=== PATIENT | female | born 1975 | race Caucasian/White ===

== ENCOUNTER → 2021-12-11 | Outpatient (CLI) | payer OTHER ==
--- NOTE | 2021-12-13 09:14 | MM ---
Reason for exam: screening (asymptomatic). Last mammogram was performed 1 year ago. History: Took hormonal contraceptives for 2 years. Physical Findings: A clinical breast exam by your physician is recommended on an annual basis and results should be correlated with mammographic findings. MG 3D Screening Mammo W/Cad Bilateral CC and MLO view(s) were taken. Prior study comparison: December 08, 2020, bilateral MG 3d screening mammo w/cad. November 06, 2019, bilateral MG 3d screening mammo w/cad. November 03, 2018, bilateral MG 3d screening mammo w/cad. October 31, 2017, bilateral MG screening mammo w CAD. There are scattered fibroglandular densities. No significant changes when compared with prior studies. ASSESSMENT: Benign, BI-RAD 2 RECOMMENDATION: Routine screening mammogram of both breasts in 1 year.
== END | disposition home or self-care (01) ==
LOC: RADMAMWWP 09:01 → MERGE 09:20
PROVIDERS: ATTEND Obstetrics & Gynecology
DX: Z12.31 Encounter for screening mammogram for malignant neoplasm of breast (principal)
CPT/HCPCS: 77063; 77067

== ENCOUNTER → 2023-03-22 | Outpatient (CLI) | payer OTHER ==
--- NOTE | 2023-03-25 09:49 | MM ---
Reason for Exam: Screening (asymptomatic). Last mammogram was performed 1 year(s) and 3 month(s) ago. Patient History: Menarche at age 14. First Full-Term at age 18. Patient used Hormonal Contraceptives for 2 years. Last menstrual period: 03/12/2023 Risk Values: Liz 5 year model risk: 0.6%. Prior Study Comparison: 11/06/2019 Bilateral Screening Mammogram, [facility]. 12/08/2020 Bilateral Screening Mammogram, [facility]. 12/11/2021 Bilateral Screening Mammogram, [facility]. Tissue Density: There are scattered fibroglandular densities. Findings: Analyzed By CAD. There is no suspicious group of microcalcifications or new suspicious mass in either breast. Overall Assessment: Negative, BI-RAD 1 Management: Screening Mammogram of both breasts in 1 year. . Patient should continue monthly self-breast exams. A clinical breast exam by your physician is recommended on an annual basis. This exam should not preclude additional follow-up of suspicious palpable abnormalities. Note on Liz scores and lifetime risk: 1. A Liz score greater than 3% is considered moderate risk. If this is the case, consider specialist referral to assess eligibility for a risk reducing agent. 2. If overall lifetime risk for the development of breast cancer is 20% or higher, the patient may qualify for future screening with alternating mammogram and breast MRI. Electronically signed and approved by: Chuck Millan M.D. Radiologis
== END | disposition home or self-care (01) ==
LOC: RADMAMWWP 10:57
PROVIDERS: ATTEND Obstetrics & Gynecology
DX: Z12.31 Encounter for screening mammogram for malignant neoplasm of breast (principal)
CPT/HCPCS: 77063; 77067

== ENCOUNTER 2023-06-25 05:48 | Day surgery (SDC) | payer OTHER ==
[2023-06-25] MEDS ORDERED: HYDROmorphone 0.5 MG/0.5 ML SYRINGE IVP PRN (05:59)
[2023-06-25] MEDS ORDERED: DEXAMETHASONE SOD PHOSPHATE 4 MG/ML 1 ML VIAL IV ONE (05:59)
[2023-06-25] MEDS ORDERED: ONDANSETRON 4 MG/2 ML VIAL IVP ONE (05:59)
[2023-06-25] MEDS ORDERED: ACETAMINOPHEN IV (For NPO) 1,000 MG in EMPTY BAG 1 BAG IVPB PRN (06:00)
[2023-06-25] MEDS: LACTATED RINGERS 1,000 ML IV SCH (06:44)
[2023-06-25] MEDS ORDERED: MIDAZOLAM 2 MG/2 ML VIAL IVP ONE (07:02)
[2023-06-25] MEDS ORDERED: GLYCOPYRROLATE 0.2 MG/ML 2 ML VIAL ONE (07:33)
[2023-06-25] MEDS ORDERED: PROPOFOL 10 MG/ML 20 ML VIAL IV ONE (07:33)
[2023-06-25] MEDS ORDERED: PHENYLEPHRINE-0.9% NACL SYG 1,000 MCG/10 ML SYRINGE ONE (07:33)
[2023-06-25] MEDS ORDERED: MIDAZOLAM 2 MG/2 ML VIAL ONE (07:33)
[2023-06-25] MEDS ORDERED: NEOSTIGMINE 1 MG/ML 10 ML VIAL ONE (07:33)
[2023-06-25] MEDS ORDERED: SUCCINYLCHOLINE CHLORIDE 200 MG/10 ML VIAL IV ONE (07:33)
[2023-06-25] MEDS ORDERED: ROCURONIUM 10 MG/ML (5 ML VIAL) IV ONE (07:33)
[2023-06-25] MEDS ORDERED: LIDOCAINE 2% INJ 20 MG/ML (2 ML VIAL) ONE (07:33)
[2023-06-25] MEDS ORDERED: HYDROmorphone (PF) 1 MG/ML ONE (07:33)
[2023-06-25] MEDS ORDERED: fentaNYL (PF) 50 MCG/ML 2 ML AMP ONE (07:33)
[2023-06-25] MEDS ORDERED: MORPHINE SULFATE (PF) 0.3 MG/0.3 ML SYR ONE (07:33)
[2023-06-25] MEDS ORDERED: BUPIVACAINE (PF) 0.25% 30 ML VIAL SQ ONE ×2 (08:15→10:12)
[2023-06-25] MEDS ORDERED: LACTATED RINGERS 1,000 ML IV ONE (09:32)
[2023-06-25] MEDS ORDERED: SIMETHICONE 80 MG CHEWABLE PO PRN (10:10)
[2023-06-25] MEDS ORDERED: Acetaminophen-Codeine 300-30mg TAB PO PRN ×2 (10:10)
[2023-06-25] MEDS ORDERED: IBUPROFEN 600 MG TAB PO PRN (10:10)
--- NOTE | 2023-06-25 12:47 | P.ANPRN ---
Procedure Note - Anesthesia - Epidural/Spinal Spinal Time Out Performed: Yes Date of Procedure: 06/25/23 Procedure Start Time: 07:01 Procedure Stop Time: 07:05 Location of Patient: PreOp Indication: Acute Post-Operative Pain, Requested by Surgeon Sedation Type: Sedate with meaningful contact maintained Preparation: Sterile Prep Position: Sitting Needle Guage: 25 Blood Aspirated: No Pain Paresthesia on Injection Noted: No Events: Uneventful and Well Tolerated (duramorph 300 mics plus fentanyl 25mics)
[2023-06-25] MEDS: ONDANSETRON 4 MG/2 ML VIAL IVP PRN ×2 (13:09→20:10)
[2023-06-25] MEDS: IBUPROFEN IV 800 MG in SODIUM CHLORIDE 0.9% 250 ML IV ONE (13:30)
[2023-06-25] MEDS: VENLAFAXINE HCL 37.5 MG TAB PO SCH (17:23)
[2023-06-25] MEDS: SENNOSIDES-DOCUSATE SODIUM 1 EACH TAB PO SCH (20:21)
[2023-06-26] MEDS: IBUPROFEN IV 800 MG in SODIUM CHLORIDE 0.9% 250 ML IV ONE (00:23)
--- NOTE | 2023-06-26 06:24 | P.PN ---
Progress Note - Text Progress Note Date: 06/26/23 is a 47-year-old female had a history of robotic-assisted vaginal h ysterectomy postoperative day 1 , for postop pain control spinal analgesia with Astramorph 300 g for postop pain. Today patient is comfortable sitting in her bed. Today patient rated her pain level 3 out of 10 in severity. Denied any fever, drowsiness, confusion. Denied any weakness, tingling sensation in her lower extremities. Denied any bowel or bladder problems. Moving all extremities without any difficulty. Able to walk without any difficulties. Vitals: Hemodynamically stable Continue oral pain medication as per primary team.
[2023-06-26 06:27] LABS: Basophils % (A) 0 %; Eosinophils # (A) 0.1 k/uL (0-0.7); Eosinophils % (A) 1 %; HCT 36.3 % (34.0-46.0); HGB 12.3 gm/dL (11.4-16.0); Lymphocytes # (A) 1.4 k/uL (1.0-4.8); Lymphocytes % (A) 13 %; MCH 32.2 pg (25.0-35.0); MCHC 33.8 g/dL (31.0-37.0); Mean Platelet Volume 8.1; Monocytes # (A) 0.6 k/uL (0-1.0); Monocytes % (A) 5 %; Neutrophils # (A) 8.7 k/uL (1.3-7.7); Neutrophils % (A) 80 %; Platelet Count 303 k/uL (150-450); RBC 3.82 m/uL (3.80-5.40); RDW 13.5 % (11.5-15.5)
[2023-06-26] MEDS: LACTATED RINGERS 1,000 ML IV SCH (06:35)
[2023-06-26] MEDS: SENNOSIDES-DOCUSATE SODIUM 1 EACH TAB PO SCH (08:53)
[2023-06-26] MEDS: VENLAFAXINE HCL 37.5 MG TAB PO SCH (08:53)
[2023-06-26 09:10] VITALS: BP 103/65; PULSE 80; RESP 16; TEMP 98.4
[2023-06-26] MEDS ORDERED: ACETAMINOPHEN TAB 325 MG TAB PO PRN (10:11)
--- NOTE | 2023-06-26 12:45 | P.DS ---
Providers Date of admission: 06/25/2023 Expected date of discharge: 06/26/23 Attending physician: Temitope Nicholas Primary care physician: Mamadou Sanchez - Discharge Diagnosis(es) (1) Menorrhagia Current Visit: Yes Status: Acute (2) Dysmenorrhea Current Visit: Yes Status: Acute Hospital Course: 47-year-old female that presented to the hospital yesterday morning for scheduled robotic-assisted vaginal hysterectomy with bilateral salpingectomy, diagnostic cystoscopy. Patient had been struggling with heavy menstrual cycles increasing dysmenorrhea. Patient, located medical history of 4 prior C-sections one being at 24 weeks with a classical . In addition she had an umbilical hernia repair with mesh just below the umbilicus. Patient wished definitive treatment with hysterectomy given the severity of her symptoms. Patient was taken back to the operating suite where hysterectomy was performed without complication. For full details on the procedure please see the operative report. Patient has done well post operatively. She is ambulating and voiding without difficulty. She states her pain is well-controlled with oral ibuprofen and Tylenol. She denies vaginal bleeding. She states she feels well and would like to be discharged home. Patient Condition at Discharge: Good Plan - Discharge Summary Discharge Rx Participant: No New Discharge Prescriptions: No Action Atorvastatin [Lipitor] 10 mg PO HS Celecoxib 200 mg PO BID Fluticasone Nasal [place] [Flonase Nasal [place]] 1 spray NASAL QAM Venlafaxine HCl [Effexor] 37.5 mg PO QAM Acetaminophen Tab [Tylenol Tab] 1,000 mg PO Q6HR PRN #30 tablet PRN Reason: Pain Multivitamin/Iron/Folic Acid [Centrum Women Tablet] 1 each PO QAM Aspirin [Adult Low Dose Aspirin EC] 81 mg PO QAM Discharge Medication List Venlafaxine HCl [Effexor] 37.5 mg PO QAM 06/05/21 [History] Acetaminophen Tab [Tylenol Tab] 1,000 mg PO Q6HR PRN #30 tablet 06/09/21 [Rx] Aspirin [Adult Low Dose Aspirin EC] 81 mg PO QAM 06/21/23 [History] Atorvastatin [Lipitor] 10 mg PO HS 06/21/23 [History] Celecoxib 200 mg PO BID 06/21/23 [History] Fluticasone Nasal [place] [Flonase Nasal [place]] 1 spray NASAL QAM 06/21/23 [History] Multivitamin/Iron/Folic Acid [Centrum Women Tablet] 1 each PO QAM 06/21/23 [History] Follow up Appointment(s)/Referral(s): Temitope Nicholas DO [Doctor of Osteopathic Medicine] - 2 Weeks Patient Instructions/Handouts: Laparoscopic Hysterectomy (DC), Laparoscopic Hysterectomy (GEN) Activity/Diet/Wound Care/Special Instructions: No tub baths or intercourse until 6 week postoperative check. Patient is to call the office and make a routine postoperative appointment for 2 weeks. Should she have any concerns prior to this appointment she is urged to call the office. [id number] ibuprofen and Tylenol are discussed for pain control. Discharge Disposition: HOME SELF-CARE
--- NOTE | 2023-07-09 16:43 | P.OP ---
Date of Procedure: 06/25/23 Preoperative Diagnosis: Heavy menstrual bleeding, dysmenorrhea Postoperative Diagnosis: Same, plus extensive omental and anterior wall adhesions Procedure(s) Performed: Robotic-assisted vaginal hysterectomy, diagnostic cystoscopy, extensive adhesio lysis Anesthesia: GREGORY Surgeon: Temitope Nicholas Rag Cutting Machine Tender #1: Dennys Swanson Estimated Blood Loss (ml): 100 IV fluids (ml): 1,300 Urine output (ml): 300 Pathology: none sent (Uterus cervix) Condition: stable Disposition: PACU Indications for Procedure: Heavy menstrual bleeding, dysmenorrhea Operative Findings: Extensive omental midline adhesions, taken down sharply, extensive uterine adhesions to the anterior abdominal wall Description of Procedure: Patient was taken back to the operating suite where general anesthesia was obtained without difficulty by the anesthesia department. She was prepped and draped in normal sterile fashion in the dorsal lithotomy position. A Hansen catheter was placed under sterile technique. A weighted speculum states the posterior vaginal vault and the anterior lip of the cervix is visualized and grasped with a single-tooth tenaculum. The endocervical canal was then serially dilated. A Bagel Nash uterine manipulator was then placed into the uterus as a means to miniplate the uterus throughout the procedure. The cervical cap was placed snugly against the cervix and all instruments were removed from the patient's vaginal vault. Attention was then turned to the patient's abdomen where approximately 3 fingerbreadths above the umbilicus a small skin incision is made. Through this incision the Veress needle is placed. Once the Veress needle was deemed to be in the proper position with a drop of CO2 pressure with insufflation of CO2 gas CO2 insufflation was allowed to occur. 3 L of gas or used to obtain pneumoperitoneum. At this time the laparoscope with the trocar place was placed through the skin incision and toward the pneumoperitoneum. The above-noted findings were visualized. The additional port sites are placed 10 cm lateral and 3 cm inferior to midline port these are operative ports and placed under direct visualization. In the left upper quadrant a 12 mm skin incision is made, and a 12 mm trocar and sleeve is placed under direct visualization. At this time with good visualization the robotic operative arms are placed. In the right operative arm the monopolar scissors and the left operative arm the bipolar forceps is placed. The midline omental adhesions were taken down sharply with the monopolar scissors. Good visualization and hemostasis was appreciated throughout. Once the omental adhesions were down the uterus was visualized and noted to be adhesive to the anterior abdominal wall. The ovaries were noted to be adhesed to the lateral pelvic sidewalls. The uterine ovarian ligament was visualized on the left coagulated and transected. Hemostasis was visualized. The round ligament was visualized coagulated and transected. Adhesio lysis of the anterior abdominal wall adhesions was then done with sharp and blunt dissection. Multiple accessory vessels were noted and coagulated throughout the procedure. Attention was then turned to the patient's right uterine ovarian ligament which was visualized coagulated and transected this continued through the broad and toward the round which was visualized coagulated and transected. Once again the anterior abdominal wall adhesions were taken down using sharp and blunt dissection a Ray-Tiera was passed into the abdomen as a means for traction against the adhesions to be brought down safely with visualization of the bladder. This was then repeated on the left side, the bladder was noted to be free from the operating field at this time. On the patient's left cervical uterine junction the uterine artery was visualized and coagulated distally proximally and divided. Small accessory vessels were once again visualized coagulated and transected. This was then repeated on the opposite side. At this time the only remaining attachment was a vaginal attachment therefore colpotomy incision was made in a circumferential fashion the uterus was then delivered through the vaginal opening. The vaginal cuff was irrigated and any points of bleeding were made hemostatic with cautery. The vaginal cuff was then closed with [id number] sutures of 0 Vicryl. 5 sutures were used to obtain closure. A small amount of bleeding was noted on the right-hand side of the vaginal cuff therefore cautery was used for hemostasis. An additional omental adhesion was taken down sharply the the appendix was visualized and found to be normal in nature, there was a small section of the bowel adherent to the abdominal wall with filmy adhesions these were taken down sharply with good visualization and no serosal defect of the bowel appreciated. Hemostasis was appreciated during this period Surgicel powder was placed along the vaginal cuff. Attention was then turned the patient's Hansen catheter which was noted be spilling clear yellow urine. A cystoscopy was performed. The cystoscope was placed through the urethra and toward the bladder and intact bladder mucosa was appreciated with a bladder bubble. Both ureteral orifices were spilling clear yellow urine. The cystoscope was removed and the Hansen catheter was replaced. Upon inspection of the vaginal cuff further bleeding was appreciated on the lateral right pelvic sidewall FloSeal was placed along this area of vessel was appreciated and was coagulated with the [place] bipolar forceps. After placement of the Surgicel hemostasis was appreciated no further oozing was appreciated. At this time all instruments were then removed from the patient's abdomen. And the robot was docked undocked in usual fashion. The skin incisions were closed with 4-0 Vicryl in a septic fashion. Steri-Strips and sterile dressings were applied. All counts were noted to be correct 2 at the end of the procedure. Patient tolerated procedure well and was taken the recovery room awake in stable condition.
== END 2023-06-26 13:52 | disposition home or self-care (01) ==
LOC: OR 05:48 → 4FBP 10:31 → OR 06-26 13:52
PROVIDERS: ATTEND Obstetrics & Gynecology Obstetrics
DX: N72 Inflammatory disease of cervix uteri (principal); N94.6 Dysmenorrhea, unspecified; G89.18 Other acute postprocedural pain; N92.0 Excessive and frequent menstruation with regular cycle; N88.8 Other specified noninflammatory disorders of cervix uteri; N80.03 Adenomyosis of the uterus; Z79.82 Long term (current) use of aspirin; Z79.899 Other long term (current) drug therapy
CPT/HCPCS: 64999; 81025; 86900; 86901; 85025; 86850; 88307; 58550; J2250; J0330; J1100; J2710; J0690; J2405; J2274; J3010; J1170; J0131; J1741; J2704; J2001; J2371; J0665

== ENCOUNTER → 2023-12-27 | Outpatient (CLI) | payer OTHER ==
--- NOTE | 2023-12-27 23:57 | MR ---
EXAMINATION TYPE: MR shoulder LT wo con DATE OF EXAM: 12/27/2023 COMPARISON: None. HISTORY: Left shoulder pain with difficulty raising arm overhead since injury December 31, 2022 TECHNIQUE: Multiplanar, multisequence imaging of the left shoulder is performed without contrast. FINDINGS: Rotator Cuff: Some increased signal in the distal supraspinatus and infraspinatus tendons with mild e deny in the supraspinatus muscle bulk extending along the bursal surface of the distal tendon. No tea r is identified. Subscapularis tendon intact. Rotator cuff muscle bulk preserved. Acromioclavicular Joint: Mild to moderate capsular hypertrophy and narrowing. Underlying fat plane is maintained. Glenohumeral Joint: Small to moderate size joint effusion. No significant spurring. Labrum: The labrum appears grossly intact given limitation of non-arthrogram study. Biceps Tendon: The long head of biceps is in normal location within bicipital groove. Bone marrow signal: Some subchondral cystic change involving the lateral aspect of the humeral head. Other: No additional significant abnormality is appreciated. IMPRESSION: 1. Tendinosis of the infraspinatus and to a greater degree distal supraspinatus tendons. No rotator c uff or labral tear is seen.
== END | disposition home or self-care (01) ==
LOC: RADMRIMAIN 18:45
PROVIDERS: ATTEND Orthopaedic Surgery
DX: M67.814 Other specified disorders of tendon, left shoulder (principal)

== ENCOUNTER → 2025-03-03 | Outpatient (CLI) | payer OTHER ==
[2025-03-03 18:17] LABS: Basophils # (A) 0.06 X 10*3/uL (0.00-0.10); Basophils % (A) 0.8 %; Eosinophils # (A) 0.09 X 10*3/uL (0.04-0.35); Eosinophils % (A) 1.2 %; HCT 47.5 % (37.2-46.3); HGB 15.7 g/dL (12.0-15.0); Lymphocytes # (A) 1.86 X 10*3/uL (0.90-5.00); MCH 31.1 pg (27.0-32.0); MCHC 33.1 g/dL (32.0-37.0); MCV 94.1 FL (80.0-97.0); Mean Platelet Volume 10.8 FL (9.5-12.2); Monocytes # (A) 0.72 X 10*3/uL (0.20-1.00); Monocytes % (A) 9.3 %; NRBC Per 100 WBC 0 X 10*3/uL (0.00-0.01); Neutrophils # (A) 4.99 X 10*3/uL (1.80-7.70); Neutrophils % (A) 64.3 %; Platelet Count 318 X 10*3/uL (140-440); RBC 5.05 X 10*6/uL (4.10-5.20); RDW 12.2 % (11.5-14.5); WBC 7.75 X 10*3/uL (4.50-10.00)
[2025-03-03 19:44] LABS: BUN/Creat Ratio 17.56 Ratio (12.00-20.00); Blood Urea Nitrogen 15.8 mg/dL (9.0-27.0); Carbon Dioxide 24.8 mmol/L (21.6-31.8); Chloride 102 mmol/L (96-109); Glucose 88 mg/dL (70-110); HCG,Quantitative Serum <3.0 mIU/mL (0.0-6.0); Potassium 4.5 mmol/L (3.5-5.5); Sodium 138 mmol/L (135-145)
== END | disposition home or self-care (01) ==
LOC: LABWHC1 13:05
PROVIDERS: ATTEND Orthopaedic Surgery
DX: Z01.812 Encounter for preprocedural laboratory examination (principal); M75.42 Impingement syndrome of left shoulder
CPT/HCPCS: 80048; 84702; 85025

== ENCOUNTER 2025-03-12 05:36 | Day surgery (SDC) | payer OTHER ==
[2025-03-10 11:30] VITALS: BMI 33.6
--- NOTE | 2025-03-11 08:45 | P.HPOR ---
History of Present Illness H&P Date: 03/11/25 Chief Complaint: Left shoulder pain The patient is a 49-year-old [id number] female who presents with left shoulder pain after an initial injury at work December 2022. She continues to have pain with overhead activity and at night. She has tried medications, therapy, and home exercises without significant improvement. She has been working with restrictions. Review of Systems Per HPI Past Medical History Past Medical History: Hyperlipidemia Additional Past Medical History / Comment(s): gestational diabetes-resolved after delivery History of Any Multi-Drug Resistant Organisms: None Reported Past Surgical History: Section, Hernia Repair, Hysterectomy Additional Past Surgical History / Comment(s): d&c , carpal tunnel surgery, cryotherapy, Past Anesthesia/Blood Transfusion Reactions: Motion Sickness, Postoperative Nausea & Vomiting (PONV) Smoking Status: Former smoker - Past Family History Mother Family Medical History: No Reported History Father Family Medical History: No Reported History Medications and Allergies Home Medications Medication Instructions Recorded Confirmed Type Acetaminophen Tab [Tylenol Tab] 1,000 mg PO Q6HR PRN #30 tablet 06/09/21 03/10/25 Rx Aspirin [Adult Low Dose Aspirin EC] 81 mg PO QAM 06/21/23 03/10/25 History Celecoxib 200 mg PO BID 06/21/23 03/10/25 History Multivitamin/Iron/Folic Acid 1 each PO QAM 06/21/23 03/10/25 History [Centrum Women Tablet] Atorvastatin [Lipitor] 20 mg PO HS 03/10/25 03/10/25 History FLUoxetine HCL [PROzac] 10 mg PO DAILY 03/10/25 03/10/25 History Allergies Allergy/AdvReac Type Severity Reaction Status Date / Time Penicillins Allergy Unknown Verified 03/10/25 11:17 Childhood Sulfa (Sulfonamide Allergy Unknown Verified 03/10/25 11:17 Antibiotics) Childhood Physical Examination - Shoulder left Tenderness with palpation: anterior, bicipital groove Pain: with abduction, with forward flexion ROM: forward flexion: 140 degrees ROM: internal rotation: lower lumbar ROM: external rotation: 50 degrees Crepitus with motion: Yes Tests: internal impingement tests: positive, external impingment tests: positive Results The patient is a well-developed well-nourished female approximately 5 foot 3, 202 pounds of endomorphic habitus. HEENT exam is nonfocal, neck is supple. She is tender about the left shoulder anterior subacromial space. She has moderate crepitus. Motor strength 5-/ 5 for abduction and external rotation. Cid, Neer sign are positive. Her distal neurovascular exam appears intact in the left upper extremity. - Diagnostic results Shoulder MRI: image reviewed (MRI of the left shoulder shows evidence of increased signal involving the infraspinatus and supraspinatus insertions.) Assessment and Plan Assessment: Left shoulder impingement/rotator cuff strain/rotator cuff tendinosis Plan: I talked to the patient at length regarding her condition along with treatment options. At this point she remains quite symptomatic despite extensive conservative measures. After a thorough discussion she opts to proceed with surgery. We will plan to proceed with left shoulder arthroscopy with probable subacromial decompression and rotator cuff debridement versus repair. Risks and benefits were discussed at length in layman's terms. We will likely perform that as an outpatient procedure.
[2025-03-12] MEDS: IV FLUID CONTINUATION 1,000 ML IV ONE (06:13)
[2025-03-12] MEDS: DEXAMETHASONE SOD PHOSPHATE 4 MG/ML 1 ML VIAL IV ONE (06:42)
[2025-03-12] MEDS: ONDANSETRON 4 MG/2 ML VIAL IVP ONE (06:42)
[2025-03-12] MEDS: LACTATED RINGERS 1,000 ML IV SCH (06:42)
[2025-03-12] MEDS: SCOPOLAMINE 1 MG/72 HR PATCH TRANSDERM ONE (06:43)
[2025-03-12] MEDS ORDERED: HYDROmorphone 0.5 MG/0.5 ML SYRINGE IVP PRN (07:00)
[2025-03-12] MEDS: MIDAZOLAM 2 MG/2 ML VIAL IV PRN (07:05)
[2025-03-12] MEDS ORDERED: ROPIVACAINE 5 MG/ML 30 ML VIAL ONE (07:37)
[2025-03-12] MEDS ORDERED: PHENYLEPHRINE 10 MG/ML VIAL ONE (07:37)
[2025-03-12] MEDS ORDERED: SUCCINYLCHOLINE CHLORIDE 200 MG/10 ML VIAL IV ONE (07:37)
[2025-03-12] MEDS ORDERED: DEXAMETHASONE SOD PHOSPHATE 4 MG/ML 1 ML VIAL ONE (07:37)
[2025-03-12] MEDS ORDERED: PROPOFOL 10 MG/ML 20 ML VIAL IV ONE (07:37)
[2025-03-12] MEDS ORDERED: GLYCOPYRROLATE 0.2 MG/ML 2 ML VIAL ONE (07:37)
[2025-03-12] MEDS: ceFAZolin 2 GM in DEXTROSE 5% IN WATER 50 ML IVPB PRN (07:37)
[2025-03-12] MEDS ORDERED: fentaNYL (PF) 50 MCG/ML 2 ML AMP ONE (07:37)
[2025-03-12] MEDS ORDERED: MIDAZOLAM 2 MG/2 ML VIAL ONE (07:37)
[2025-03-12] MEDS ORDERED: LIDOCAINE 1% INJ 10MG/ML (20 ML MDV) ONE (07:37)
--- NOTE | 2025-03-12 07:52 | P.ANPRN ---
Procedure Note - Anesthesia - Nerve Block Performed Left Interscalene Single Time Out Performed: Yes Date of Procedure: 03/12/25 Procedure Start Time: : Procedure Stop Time: 07:11 Location of Patient: PreOp Indication: Acute Post-Operative Pain, Analgesia, Requested by Surgeon Sedation Type: Sedate with meaningful contact maintained Preparation: Sterile Prep Position: Sitting Catheter: None Needle Types: Pajunk Needle Gauge: 21 Ultrasound used to visualize needle placement: Yes Ultrasound used to observe medication spread: Yes Injectate: 0.5% Ropivacaine (see comment for volume) (Ropiv 20ml+Decadron 4mg. Negative stimulation @0.5MA) Blood Aspirated: No Pain Paresthesia on Injection Noted: No Resistance on Injection: Normal Image Stored and Saved: Yes Events: Uneventful and Well Tolerated
--- NOTE | 2025-03-12 08:50 | P.OP ---
Date of Procedure: 03/12/25 Preoperative Diagnosis: Left shoulder impingement/rotator cuff strain/partial-thickness tear Postoperative Diagnosis: Partial-thickness tear left shoulder upper subscapularis/type I superior labral tear Procedure(s) Performed: Left shoulder arthroscopic subacromial decompression/rotator cuff debridement/superior labral debridement Anesthesia: GREGORY [facility] Surgeon: Jake Rhodes Reservationist #1: Erasto Bray Estimated Blood Loss (ml): 10 Pathology: none sent Condition: stable Disposition: PACU Indications for Procedure: The patient is a 49-year-old female who presents with persistent/progressive left shoulder pain after previous injury despite extensive conservative measures. A discussion of the risks and benefits of operative intervention versus continued conservative measures was made with the patient. She opted to proceed with surgery. Operative risks include infection, neurovascular injury, development of blood clots, possible incomplete resolution of symptoms, possible worsening of symptoms and need for subsequent procedures was discussed. Informed consent was obtained. Operative Findings: As below Description of Procedure: The patient was brought to the operating room, and after induction of general anesthesia was placed in a beachchair position. A preoperative interscalene block was placed for postoperative analgesia. I examined the left shoulder. There was no gross block to passive motion or gross glenohumeral instability. The left upper extremity was prepped and draped in normal fashion. The bony outlines the acromion, distal clavicle, and coracoid process were outlined with a skin marker. The glenohumeral joint was inflated with 50 mL of saline utilizing a spinal needle from posterior approach. A posterior portal was made through a 5 mm skin incision 1 cm medial and inferior to the posterior lateral border time. A blunt trocar was used to easily into the joint. Diagnostic arthroscopy was performed. An anterior portal was made just lateral to the coracoid process entering the joint above the subscapularis tendon. The subscapularis tendon was inspected. There was a partial-thickness tear involving the upper border involving approximately 15% of the thickness. This is debrided back to a stable base with a motorized shaver. The remaining subscapularis appeared to be stable and intact. Anterior labrum was intact. The inferior recess was inspected. The posterior labrum was intact. The biceps and its anchor was then inspected. There was a type I superior labral tear. This is debrided back to a stable base with a motorized shaver. The remaining biceps and labral complex was stable and intact. On inspection the rotator cuff, it was intact on the articular surface. A lateral portal was made 2 centimeters inferior to the anterior lateral border of the acromion. The soft tissue on the undersurface of the acromion was debrided with a motorized shaver and electrocautery clearly defining the anterior medial and lateral borders as well as the distal clavicle. An anterior inferior acromioplasty was performed with a motorized raza starting anterolateral, then extending this posteriorly, then extending this medially. I converted to a flat acromion and this was verified in the posterior and lateral viewing portals. Attention was then paid towards the rotator cuff. Significant bursal thickening was noted. This is d ebrided with a motorized shaver. The rotator cuff otherwise appeared intact on the bursal surface. The arthroscope was then removed. The portals were closed with simple 3-0 nylon sutures. A sterile dressing was applied in addition to a sling. The patient was then awoken from general anesthesia and transferred to recovery room in good condition. Blood loss was estimated at 10 mL. No complications were incurred. Sponge and needle counts were correct in the case. SALINAS Shields assisted during the major components of the case to include positioning, decompression, and debridement.
[2025-03-12 09:04] VITALS: TEMP 98
[2025-03-12] MEDS: KETOROLAC 15 MG/ML 1 ML VIAL IVP STA (09:36)
[2025-03-12 10:01] VITALS: RESP 18
[2025-03-12 10:27] VITALS: BP 144/89; PULSE 89
== END 2025-03-12 10:56 | disposition home or self-care (01) ==
LOC: OR 05:36
PROVIDERS: ATTEND Orthopaedic Surgery
DX: S46.012A Strain of muscle(s) and tendon(s) of the rotator cuff of left shoulder, initial encounter (principal); E78.5 Hyperlipidemia, unspecified; F41.9 Anxiety disorder, unspecified; Z98.890 Other specified postprocedural states; Z90.710 Acquired absence of both cervix and uterus; Z87.891 Personal history of nicotine dependence; Z88.0 Allergy status to penicillin; Z88.2 Allergy status to sulfonamides; Z88.1 Allergy status to other antibiotic agents; Z79.02 Long term (current) use of antithrombotics/antiplatelets; Z79.82 Long term (current) use of aspirin; Z79.899 Other long term (current) drug therapy; X58.XXXA Exposure to other specified factors, initial encounter
CPT/HCPCS: 64415; 29822; 29826; J2250; J0330; J1100; J0690; J2405; J2003; J3010; J2795; J1885; J2704; J2371; J1596